=== PATIENT | male | born 1985 | race Caucasian/White ===

== ENCOUNTER 2024-11-14 10:11 | Emergency (ER) | payer MEDICAID ==
[~2024-11-14] VITALS: Ht 175.3 cm; Wt 113.0 kg
[2024-11-14 10:15] VITALS: BP 144/95; PULSE 112; RESP 22; TEMP 36.7; O2SAT 98
[2024-11-14] MEDS: KETOROLAC 30MG/ML VIAL IM ONE (10:43)
[2024-11-14] MEDS ORDERED: NAPR-1486 MT (11:35)
== END 2024-11-14 11:44 | disposition home or self-care (01) ==
LOC: ER 10:11
DX: M54.9 Dorsalgia, unspecified (principal); R07.89 Other chest pain; F17.200 Nicotine dependence, unspecified, uncomplicated; F20.9 Schizophrenia, unspecified; I10 Essential (primary) hypertension
CPT/HCPCS: 99283; 71045; 96372; J1885; 81025

== ENCOUNTER 2025-01-11 12:05 | Emergency (ER) | payer MEDICAID ==
[~2025-01-11] VITALS: Ht 175.3 cm; Wt 114.0 kg
[~2025-01-11 12:05] MED LIST: NAPR-1486 MT
[2025-01-11 12:22] VITALS: BP 133/78; TEMP 36.9; O2SAT 100
[2025-01-11] MEDS: KETOROLAC 30MG/ML VIAL IM ONE (16:53)
[2025-01-11] MEDS ORDERED: IBUP-2029 MT (17:07)
[2025-01-11 17:15] VITALS: PULSE 99; RESP 18; O2SAT 100
== END 2025-01-11 17:21 | disposition home or self-care (01) ==
LOC: ER 12:05
DX: S22.42XA Multiple fractures of ribs, left side, initial encounter for closed fracture (principal); R05.9 Cough, unspecified; I10 Essential (primary) hypertension; Z98.890 Other specified postprocedural states; Z86.59 Personal history of other mental and behavioral disorders; X58.XXXA Exposure to other specified factors, initial encounter; Y93.89 Activity, other specified; Y92.89 Other specified places as the place of occurrence of the external cause; Y99.8 Other external cause status
CPT/HCPCS: 99283; 71046; 96372; J1885